=== PATIENT | female | born 1980 | race Caucasian/White ===

== ENCOUNTER 2022-06-30 11:19 | Day surgery (SDC) | payer BC ==
[~2022-06-30] VITALS: Ht 170.2 cm; Wt 66.3 kg
[2022-06-30] MEDS ORDERED: normal saline 1000ml 1,000 ML IV PRN (11:35)
--- NOTE | 2022-06-30 12:05 | NUR ---
Procedure cancelled by Dr. Correa.
== END 2022-06-30 12:05 | disposition home or self-care (01) ==
LOC: SSTAY O 11:19
PROVIDERS: ATTEND Radiology Diagnostic Radiology
DX: K76.89 Other specified diseases of liver (principal); Z53.8 Procedure and treatment not carried out for other reasons; Z88.8 Allergy status to other drugs, medicaments and biological substances; Z88.5 Allergy status to narcotic agent
CPT/HCPCS: J7030